=== PATIENT | female | born 1975 | race Caucasian/White ===

== ENCOUNTER 2019-04-18 00:41 | Observation (INO) ==
[2019-04-18] MEDS ORDERED: LABETALOL HCL IV 5 MG/ML 20ML IV STA ×2 (01:01→01:47)
[2019-04-18 01:10] LABS: Hematocrit (blood only) 41.7 % (37-47); Mean Corpuscular Hemoglobin 30.8 pg (25-34); Mean Corpuscular Hgb Conc 33.6 g/dL (32-36); Mean Corpuscular Volume 91.9 fL (80-100); Mean Platelet Volume 10.5 fL (7.4-10.4); Platelet Count 275 K/uL (130-400); RDW Coefficient of Variation 12.4 % (11.5-14.5); RDW Standard Deviation 41.4 fL (36.4-46.3); Red Blood Count 4.54 M/uL (4.2-5.4)
[2019-04-18] MEDS ORDERED: ASPIRIN CHEW 324 MG PO STA (01:20)
[2019-04-18 01:29] LABS: Alanine Aminotransferase 54 U/L (12-78); Albumin Level 3.5 gm/dl (3.4-5.0); Aspartate Aminotransferase 30 U/L (15-37); BUN Creatinine Ratio 12.3 (10-20); Blood Urea Nitrogen 14 mg/dl (7-18); Carbon Dioxide 28 mmol/L (21-32); Chloride 105 mmol/L (98-107); Creatinine Clr Calc Pharmacy 63.2 ml/min; Est GFR (African American) 68.2; Est GFR (Non-African American) 58.8; Glucose 156 mg/dl (70-99); Lipase 205 U/L (73-393); Potassium 3.5 mmol/L (3.5-5.1); Sodium 138 mmol/L (136-145)
[2019-04-18 01:32] LABS: Eosinophils % (manual) 0.9 %; Monocytes % (manual) 2.6 %; Myelocytes % (manual) 0.9 %; Neutrophils % (manual) 41.7 %; RBC Morphology Unremarkable; Reactive Lymphocytes % (manual) 20.9 %
[2019-04-18 01:40] LABS: Albumin Globulin Ratio 0.7 (0.9-2); Alkaline Phosphatase 94 U/L (45-117); Bilirubin,Total 0.2 mg/dl (0.2-1); Globulin 5.2 gm/dl (2.5-4.0); Total Protein 8.7 gm/dl (6.4-8.2); Troponin I < 0.015 ng/ml (0-0.045)
[2019-04-18 01:53] LABS: T4 Free Thyroxine 1.11 ng/dl (0.8-1.6)
--- NOTE | 2019-04-18 03:03 | Emergency Department Note ---
Entered by Curtis Escobedo acting as a scribe for History of Present Illness General Chief complaint: Chest Pain Stated complaint: ELEVATED BP,PULSE,CHEST PRESSURE Time Seen by Provider: 04/18/19 00:48 Source: patient History of Present Illness Onset (ago): day(s) (this morning) Location: chest Pain Consistency: + constant Maximum Pain Intensity: 3 Quality: + other (chest pressure) Associated symptoms: + other (Positive for high blood pressure and dizziness. Negative for SOB and recent weight loss.) The patient is a 44 year old female who presents to the emergency department with complaints of constant chest pressure beginning this morning. The patient states that her blood pressure has been increasing for the last three weeks. She notes that she then woke up this morning with a high blood pressure and chest pressure. She reports that she had an episode of dizziness and had to lay down. The patient states that her chest pain is not as bad after laying down. She notes that she has been hot this week which is unusual. She denies any SOB and recent weight loss. The patient reports that she has a history of Hashimotos disease, and she states that she takes control. Home Medications Home Medications Medication Instructions Recorded Confirmed Type Control Pills 1 tab PO DAILY 04/18/19 04/18/19 History levothyroxine 112 mcg PO DAILY 04/18/19 04/18/19 History Allergies Allergy/AdvReac Type Severity Reaction Status Date / Time cucumber Allergy Unknown Verified 04/25/05 22:01 Past Med/Surg History Family History (Updated 04/18/19 @ 01:30 by Curtis Escobedo) Other No significant family history Social History Preferred Language: Sudanese Communication Ability: Effective Junior Qa Analyst Required: No Beliefs That Will Affect Care: None Current Living Situation: Spouse Feels Safe at Home: Yes Smoking Status: Never smoker Hx Alcohol Use: No Hx Substance Use: No Review of Systems See HPI for pertinent positives & negatives. and A total of 10 systems reviewed and were otherwise negative Physical Exam Vital Signs Vital Signs - 24 hr 04/18/19 00:44 04/18/19 00:52 04/18/19 01:05 Temperature 36.7 C Temperature Source Oral Pulse Rate 136 H Pulse Rate [Apical] Pulse Rhythm Regular Pulse Strength Normal Respiratory Rate 22 Respiratory Depth Normal Respiratory Pattern Regular Blood Pressure 203/131 H Blood Pressure [Left Arm] Blood Pressure Mean 155 Blood Pressure Mean [Left Arm] Blood Pressure Position Sitting Pulse Oximetry 99 98 98 Oxygen Delivery Method Room Air Room Air Room Air Sepsis Recent Fever Within 48 Hours No Sepsis Action Taken by Nursing No Action Required 04/18/19 01:06 04/18/19 01:17 04/18/19 01:32 Temperature Temperature Source Pulse Rate Pulse Rate [Apical] 104 H 91 H Pulse Rhythm Pulse Strength Respiratory Rate 16 18 Respiratory Depth Respiratory Pattern Blood Pressure Blood Pressure [Left Arm] 153/108 H 162/104 H Blood Pressure Mean Blood Pressure Mean [Left Arm] 123 123 Blood Pressure Position Pulse Oximetry 98 97 95 Oxygen Delivery Method Room Air Room Air Room Air Sepsis Recent Fever Within 48 Hours Sepsis Action Taken by Nursing 04/18/19 01:49 04/18/19 02:01 04/18/19 03:39 Temperature Temperature Source Pulse Rate Pulse Rate [Apical] 85 83 85 Pulse Rhythm Pulse Strength Respiratory Rate 18 18 18 Respiratory Depth Respiratory Pattern Blood Pressure Blood Pressure [Left Arm] 146/105 H 144/95 H 165/96 H Blood Pressure Mean Blood Pressure Mean [Left Arm] 118 111 119 Blood Pressure Position Pulse Oximetry 96 94 96 Oxygen Delivery Method Room Air Room Air Room Air Sepsis Recent Fever Within 48 Hours Sepsis Action Taken by Nursing Vital signs reviewed. General: Well-appearing female, in no significant distress, anxious. HEENT: No conjunctival injection, moist mucous membranes. Flushed face. Cardiovascular: Regular rhythm and tachycardic, no extra sounds. Pulmonary: Clear to auscultation bilaterally, normal work of breathing. Abdomen: Soft, nontender, nondistended, positive bowel sounds. Musculoskeletal: Atraumatic, no peripheral edema. Neurologic: Patient awake alert and oriented x 3. Skin: Warm, dry, no rash. Course Course 0101: The patient was evaluated in room A3. A complete history and physical exam was performed. 0259: Upon reevaluation, the patient is stable. I discussed the findings and the treatment plan with the patient. She expresses agreement and understanding. [facility] The patient will be evaluated for further management. Consultations Consultation #1: I reviewed the patient's case with Dr. Ty - Hospitalist [facility]. He will evaluate the patient for further management. Time: 02:59 Administered Medications Discontinued Medications Aspirin (Aspirin) 324 mg PO NOW STA Stop: 04/18/19 01:21 Last Admin: 04/18/19 01:23 Dose: 324 mg Documented by: [id number] Labetalol HCl (Normodyne) 10 mg IV NOW STA Stop: 04/18/19 01:02 Last Admin: 04/18/19 01:18 Dose: 10 mg Documented by: [id number] Cosigned by: [id number] Labetalol HCl (Normodyne) 10 mg IV NOW STA Stop: 04/18/19 01:48 Last Admin: 04/18/19 01:51 Dose: 10 mg Documented by: [id number] Cosigned by: [id number] Medical Decision Making Differential Diagnosis Differential diagnosis: Etiologies such as hypertensive urgency, PE, pheochromocytoma, thyroid storm, shingles, musculoskeletal pain, pericarditis, myocarditis, cardiac ischemia, pneumonia, pneumothorax, pleural effusion, hemothorax, pleurisy, aortic pathology, gastritis, peptic ulcer disease, as well as others were considered. Medical Records Attestation: I reviewed the patient's medical records. Home Medications Current Medication List: was personally reviewed by me Laboratory Data Attestation: I reviewed the patient's lab results. Result diagrams: 04/18/19 01:00 04/18/19 01:00 Lab Results 04/18/19 04/18/19 Range/Units 01:00 01:00 WBC 11.50 H (4.8-10.8) K/uL RBC 4.54 (4.2-5.4) M/uL Hgb 14.0 (12.0-16.0) g/dL Hct 41.7 (37-47) % MCV 91.9 (80-100) fL MCH 30.8 (25-34) pg MCHC 33.6 (32-36) g/dL RDW Std Deviation 41.4 (36.4-46.3) fL RDW Coeff of Ines 12.4 (11.5-14.5) % Plt Count 275 (130-400) K/uL MPV 10.5 H (7.4-10.4) fL Neutrophils % (Manual) 41.7 % Lymphocytes % (Manual) 33.0 % Reactive Lymphs % (Man) 20.9 % Monocytes % (Manual) 2.6 % Eosinophils % (Manual) 0.9 % Myelocytes % (Man) 0.9 % Neutrophils # (Manual) 4.80 (1.4-6.5) K/uL Total Absolute Neuts 4.80 (1.4-6.5) K/uL Lymphocytes # (Manual) 3.80 H (1.2-3.4) K/uL Reactive Lymphs # 2.40 K/uL Total Abs Lymphocytes 6.20 H (1.2-3.4) K/uL Monocytes # (Manual) 0.30 (0.11-0.59) K/uL Eosinophils # (Manual) 0.10 (0-0.5) K/uL Myelocytes # (Manual) 0.10 H (0-0) K/uL RBC Morphology Unremarkable Sodium 138 (136-145) mmol/L Potassium 3.5 (3.5-5.1) mmol/L Chloride 105 (98-107) mmol/L Carbon Dioxide 28 (21-32) mmol/L Anion Gap 5.0 (3-11) BUN 14 (7-18) mg/dl Creatinine 1.14 (0.6-1.2) mg/dl Est Cr Clr Drug Dosing 63.2 ml/min Est GFR ( Amer) 68.2 Est GFR (Non-Af Amer) 58.8 BUN/Creatinine Ratio 12.3 (10-20) Glucose 156 H (70-99) mg/dl Calcium 9.0 (8.5-10.1) mg/dl Total Bilirubin 0.2 (0.2-1) mg/dl AST 30 (15-37) U/L ALT 54 (12-78) U/L Alkaline Phosphatase 94 (45-117) U/L Troponin I < 0.015 (0-0.045) ng/ml Total Protein 8.7 H (6.4-8.2) gm/dl Albumin 3.5 (3.4-5.0) gm/dl Globulin 5.2 H (2.5-4.0) gm/dl Albumin/Globulin Ratio 0.7 L (0.9-2) Lipase 205 (73-393) U/L TSH 10.500 H (0.300-4.500) uIu/ml Free T4 1.11 (0.8-1.6) ng/dl Imaging Data Attestation: I personally reviewed and interpreted this imaging study as follows: My Impression: CHEST X-RAY: No pulmonary consolidation. No failure. ECG Data Attestation: I personally reviewed and interpreted this ECG as follows: Indication: + chest pain Rate (beats per minute): 118 Rhythm: + sinus tachycardia ECG ST segments: no ST depression and no ST elevation ECG Findings: no PACs and no PVCs Additional Comments: QTC slightly prolonged at 462. Blood Pressure Blood Pressure Findings: Elevated blood pressure Blood Pressure Disposition: elevated BP felt to be situational MDM Narrative This patient was evaluated and appeared to be in no significant distress. IV access was obtained and laboratory work was drawn. Patient is noted to be hypertensive and tachycardic. Patient was given 324 mg of aspirin to chew. She was given 10 mg of IV labetalol with modest improvement. Laboratory work reveals an elevated TSH at 10.5 with a normal free T4 at 1.11. Troponin is normal. Patient's chest x-ray reveals no evidence of acute abnormality to my review. EKG confirms sinus tachycardia without evidence of acute ischemic process. Patient did require second dose of IV labetalol 10 mg. At this time she has no shortness of breath or pain with deep inspiration. She has maintaining her oxygenation. Although the patient is on control pills, I do think PE is less likely. Excessive thyroid hormone was considered initially however with the normal free T4, this is much less likely. Given the chest pain, tachycardia, the case was discussed with the [facility] to evaluate the patient for further management. Patient is aware of the plan and agrees. Impression & Plan Hypertensive urgency, Substernal chest pain Discharge Plan Visit Data *Final* Discharge Date/Time: 04/18/19 04:16 Chief Complaint: Chest Pain Stated Complaint: ELEVATED BP,PULSE,CHEST PRESSURE ED Provider: Rosey Pinzon Discharge Problem: Hypertensive urgency, Substernal chest pain Patient Disposition: Admitted As Inpatient Discharge Instructions Interventions: ED Discharge Assessment Last Done: 04/18/19 04:16 The scribe's documentation has been prepared under my direction and personally reviewed by me in its entirety. I confirm that the note above accurately reflects all work, treatment, procedures, and medical decision making performed by me.
--- NOTE | 2019-04-18 04:37 | History and Physical Report ---
DATE OF ADMISSION: 04/18/2019 CHIEF COMPLAINT: Chest pain and palpitations. HISTORY OF PRESENT ILLNESS: This is a 44-year-old female with past medical history significant for hypothyroidism, history of Juarez thyroiditis, who presents with chest pain. The patient says she woke up from the sleep with chest pain and palpitations, mild in severity, 2/3 in severity, pressure like feeling. Not associated with nausea or vomiting. No sweating, no headache. She was feeling dizzy today and also some blurred vision today because of these episodes. The patient was saying that since last three weeks her blood pressure was rising slowly and the blood pressure here when she came into the ER was 203/131. With the labetalol, her blood pressure has come down. She says she still has some discomfort in the chest. She is on control pills, but denies any smoking. She is on control pills for a long time, but on current control pills are for the last 2 years. Whenever she stops the control pills, she gets migraines. Denies any shortness of breath. No nausea, no vomiting, no abdominal pain. Normal bowel and bladder movements. No black stools or blood in the stools. No hematuria or burning micturition. No fever, no chills, no cough, no difficulty swallowing. No headache, no earache, no runny nose, no sore throat. Currently resting comfortably and hemodynamically stable. ALLERGIES: CUCUMBER. PAST MEDICAL HISTORY: As mentioned above. PAST SURGICAL HISTORY: Dental surgery, appendectomy. MEDICATIONS: The patient is on levothyroxine 112 mcg p.o. daily, MIRCETTE 1 tablet daily, vitamin D 2000 units p.o. daily. FAMILY HISTORY: Significant for father had hypercholesterolemia, heart disorder; mother had motor vehicle accidents; brother had kidney stones. SOCIAL HISTORY: . No smoking, no alcohol, no drug use. REVIEW OF SYSTEMS: As per HPI. Rest of the review of systems negative. PHYSICAL EXAMINATION: GENERAL: The patient is of moderate build, not in acute distress. VITAL SIGNS: Temperature of 36.7, pulse 85, respiratory rate 18, blood pressure when she came in was 203/131, currently 165/96, oxygen 96% room air. HEENT: No pallor, no icterus. Pupils equal, round, and reactive to light. NECK: No JVD, no neck masses, no carotid bruits. CARDIOVASCULAR: S1, S2 heard, regular rate and rhythm, no murmur, no gallop. RESPIRATORY SYSTEM: Normal AP diameter. No accessory muscle use. No wheezing, no crackles. ABDOMEN: Soft, bowel sounds present, nontender. No distention. CENTRAL NERVOUS SYSTEM: Cranial nerves II-XII grossly intact. Nonfocal. EXTREMITIES: No edema, no erythema. LABORATORY DATA: WBC 11.5, hemoglobin 14, hematocrit 41.7, platelets 275. Sodium 135, potassium 3.5, chloride 105, bicarbonate 28, BUN 14, creatinine 1.1, serum glucose 156, calcium 9, total bilirubin 0.2, AST 30, ALT 54, alkaline phosphatase 94. Troponin I less than 0.015. Lipase 205. TSH 10.5, free T4 of 1.11. IMAGING DATA: Chest x-ray: No acute findings seen. EKG: Sinus tachycardia with a rate of 118. Possible left atrial enlargement. No previous EKG available. ASSESSMENT AND PLAN: This is a 44-year-old female who presents with chest pain and found to have hypertensive urgency. 1. Chest pain. Troponin negative, EKG unremarkable. Risk factor is age. We will observe in tele floor. We will do serial cardiac enzymes, echocardiogram. Keep n.p.o. for now and consult cardiology in the a.m. The patient is on control pills. She is a nonsmoker. We will check a D-dimer and if D-dimer is elevated, we will do a CT angiogram of the chest to rule out pulmonary embolism. The patient is otherwise hemodynamically stable. 2. Hypertensive urgency, could be the possible cause of her chest pain and palpitations. We will place on IV labetalol p.r.n. Follow the echocardiogram. Follow the blood pressure in the hospital. Consult cardiology for further recommendations. Further workup as per cardiology recommendations. 3. Hypothyroidism. Continue her home dose Synthroid. TSH is slightly high, but free T4 normal. Follow up with repeat labs with PCP. 4. Deep venous thrombosis prophylaxis, sequential compression devices. DISPOSITION: Observation in tele floor. Level 1 full code. MTDD
[2019-04-18] MEDS ORDERED: LABETALOL HCL IV 5 MG/ML 20ML IV PRN (04:42)
[2019-04-18] MEDS ORDERED: NITROGLYCERIN SL 0.4 MG/TAB TAB SL PRN (04:42)
[2019-04-18] MEDS ORDERED: ONDANSETRON INJ 2 MG/ML 2 ML VIAL IV PRN (04:42)
[2019-04-18] MEDS ORDERED: ACETAMINOPHEN 325 MG TAB PO PRN (04:42)
[2019-04-18] MEDS: LEVOTHYROXINE SODIUM 112 MCG TABLET PO SCH (05:40)
[2019-04-18 06:37] LABS: D Dimer 360 ug/L FEU (0-500)
[2019-04-18] MEDS: BCP'S~ORDER AWAITING ACTION SCH ×2 (07:16→17:31)
--- NOTE | 2019-04-18 08:26 | XRay Report ---
XR chest 1V portable CLINICAL HISTORY: Atypical chest pain COMPARISON STUDY: No previous studies for comparison. FINDINGS: The cardiac and mediastinal contours are normal. There is no evidence of focal pulmonary co nsolidation. There is no evidence of failure. No pleural effusions are visualized.[ IMPRESSION: No active disease in the chest. ACT 112: Negative or not required by law. Electronically signed by: Gaurang Cesar M.D. 04/18/2019 8:24 AM
[2019-04-18 14:36] LABS: Amphetamines+Metham, Urine Neg (Neg); Barbiturates, Urine Neg (Neg); Benzodiazepine, Urine Neg (Neg); Cocaine, Urine Neg (Neg); MDMA (Ecstacy), Urine Neg (Neg); Methadone, Urine Neg (Neg); Opiate, Urine Neg (Neg); Phencyclidine, Urine Neg (Neg)
--- NOTE | 2019-04-18 17:03 | Hospitalist Progress Note ---
Date of Service April 18, 2019 Assessment & Plan (1) Hypertensive urgency: Admitted with very high blood pressure of 203/131 with headache and palpitation Received intravenous labetalol and the blood pressure was improved She has been complaining of headache with palpitation for the last week or so She has been a regular runner but for the last 1 week she has not been doing that Secondary causes of hypertension have to be ruled out Could be due to use of contraception and/or too much caffeine Her kidney function remains normal with lower limit of potassium Will get urine tox screen, plasma catecholamines and metanephrines and serum aldosterone level Blood pressure seems to be under control (2) Substernal chest pain: Was admitted with substernal chest pain and was noted to have hypertensive urgency Serial cardiac enzymes and EKG and echo remain unremarkable for ACS Appreciate cardiology input and recommendation (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 TSH is minimally high at more than 10 but free T4 is normal Will not change her current dose of thyroxine DVT prophylaxis SCDs Increasing ambulation Subjective 04/18/2019 The patient was seen and examined in telemetry unit She complains to have occasional headache with palpitation and was admitted with hypertensive urgency with chest pressure Has been feeling a lot better but complained to have headache in the afternoon Denies any chest pain and/or palpitation and no chest tightness Review of Systems Review of Systems: All systems reviewed and are unremarkable except as noted below Cardiovascular: no chest pain, no dyspnea on exertion and no palpitations Physical Exam Physical Exam: Lying in bed comfortably Constitutional: well developed, well nourished and + ill appearing; no acute distress Eyes: PERRL, conjunctivae normal, anicteric sclerae ENMT: external ear and nose normal, oropharynx normal Neck: trachea midline, no thyromegaly Respiratory: normal respiratory effort; no respiratory distress Auscultation: lungs clear to auscultation bilaterally Cardiovascular: Rate/Rhythm: regular rate and regular rhythm Heart Sounds: no murmur Gastrointestinal (Abdomen): Inspection/Auscultation: abdomen normal to inspection and normal bowel sounds Percussion/Palpation: abdomen soft Musculoskeletal: Extremities: strength 5/5 throughout and + abnormal strength Neurologic: patellar DTR's 2+ bilat, sensation intact Lymphatic: no cervical or axillary lymphadenopathy Results & Data Vital Signs (Past 12 Hours) Vital Signs Temp Pulse Pulse Resp BP Pulse Ox 04/18/19 15:05 36.5 C 88 18 135/83 96 04/18/19 11:00 37 C 94 H 16 151/94 H 96 04/18/19 07:19 79 04/18/19 06:55 36.9 C 80 20 127/84 98 Laboratory Results Short CBC 04/18/19 Range/Units 01:00 WBC 11.50 H (4.8-10.8) K/uL Hgb 14.0 (12.0-16.0) g/dL Hct 41.7 (37-47) % Plt Count 275 (130-400) K/uL BMP 04/18/19 01:00 Sodium 138 Potassium 3.5 Chloride 105 Carbon Dioxide 28 BUN 14 Creatinine 1.14 Glucose 156 H Calcium 9.0 Cardiac Enzymes 04/18/19 04/18/19 04/18/19 Range/Units 01:00 06:13 11:57 Troponin I < 0.015 < 0.015 < 0.015 (0-0.045) ng/ml Liver Function 04/18/19 Range/Units 01:00 Total Bilirubin 0.2 (0.2-1) mg/dl AST 30 (15-37) U/L ALT 54 (12-78) U/L Alkaline Phosphatase 94 (45-117) U/L Albumin 3.5 (3.4-5.0) gm/dl Medications Administered Current Inpatient Medications Acetaminophen (Tylenol) 650 mg PO Q4H PRN PRN Reason: Pain or Fever Stop: 05/18/19 04:41 Last Admin: 04/18/19 14:01 Dose: 650 mg Documented by: Aspirin (Ecotrin Ectab) 81 mg PO QAM [facility] Stop: 05/19/19 08:59 Labetalol HCl (Normodyne) 10 mg IV Q4H PRN PRN Reason: Hypertension Stop: 05/18/19 04:41 Levothyroxine Sodium (Synthroid) 112 mcg PO DAILYBB [facility] Stop: 05/18/19 06:29 Last Admin: 04/18/19 05:40 Dose: 112 mcg Documented by: Miscellaneous (Order Awaiting Action) 1 ea N/A QS [facility] Stop: 05/18/19 07:59 Last Admin: 04/18/19 07:16 Dose: Not Given Documented by: Nitroglycerin (Nitrostat) 0.4 mg SL UD PRN PRN Reason: Chest Pain Stop: 05/18/19 04:41 Ondansetron HCl (Zofran) 4 mg IV Q6H PRN PRN Reason: Nausea Stop: 05/18/19 04:41
[2019-04-18] MEDS ORDERED: PROPRANOLOL HCL 10 MG TAB PO STA (17:26)
--- NOTE | 2019-04-18 17:34 | Cardiology Consultation ---
Date of Consultation April 18, 2019 Assessment & Plan (1) Hypertensive urgency: (2) Juarez's disease: History of Present Illness Attending Physician: Alaina Rosario MD History of Present Illness Jovita Todd is a 44 year old female seen in cardiology consultation per the request of Dr Ty for the evaluation of palpitations and hypertension. She states that she was in her normal state of health until last night at 11 PM she felt her heart pounding and felt associated headache. Her symptoms persisted, she presented to the emergency room at 12:44 AM with initial blood pressure of 203/131. She received treatment with a dose of IV labetalol, and her blood pressure subsequently trended toward improvement. Reading this morning at 655 was 127/84, and 11 AM 151/94, and at 1505 135/83. She is actually feeling better today, but she was n.p.o. awaiting test today and then felt her headache come back. 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 Past Medical History: History of Juarez's thyroiditis, currently on levothyroxine supplementation Headaches Allergies Allergy/AdvReac Type Severity Reaction Status Date / Time cucumber Allergy Unknown Verified 04/25/05 22:01 Home Medications Home Medications Medication Instructions Recorded Confirmed Type Control Pills 1 tab PO DAILY 04/18/19 04/18/19 History levothyroxine 112 mcg PO DAILY 04/18/19 04/18/19 History Patient History Family History (Updated 04/18/19 @ 01:30 by Curtis Escobedo) Other No significant family history Social History Preferred Language: Romansh Communication Ability: Effective Printing 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 Required: No Beliefs That Will Affect Care: None Current Living Situation: Spouse Feels Safe at Home: Yes Smoking Status: Never smoker Hx Alcohol Use: No Hx Substance Use: No Review of Systems Review of Systems: All systems reviewed & are unremarkable except as noted in HPI & below Physical Exam Physical Exam: Temp Pulse Resp BP Pulse Ox 36.5 C 88 18 135/83 96 04/18/19 15:05 04/18/19 15:05 04/18/19 15:05 04/18/19 15:05 04/18/19 15:05 Constitutional: WD/WN, vitals as above Respiratory: normal respiratory effort, lungs clear to auscultation Cardiovascular: RRR, no murmur, no edema Gastrointestinal (Abdomen): normal bowel sounds, soft, nontender, no hepatosplenomegaly Neurologic: PERRL, EOMI, accommodation nl, no face palsy, no dysarthria Results & Data Vital Signs (Past 12 Hours) Vital Signs Temp Pulse Pulse Resp BP Pulse Ox 04/18/19 15:05 36.5 C 88 18 135/83 96 04/18/19 11:00 37 C 94 H 16 151/94 H 96 04/18/19 07:19 79 04/18/19 06:55 36.9 C 80 20 127/84 98 Laboratory Results D-dimer screen was normal at 360 Troponin levels have been normal on a serial basis x3. Diagnostic Findings EKG performed on admission on 04/18/2019 revealed sinus tachycardia 118 bpm, possible left atrial enlargement, otherwise normal EKG. Echocardiogram revealed normal left ventricular myocardial thickness, normal left ventricular systolic function, normal LVEF, 60 to 65%, there is no significant underlying valvular heart disease. Medications Administered Current Inpatient Medications Acetaminophen (Tylenol) 650 mg PO Q4H PRN PRN Reason: Pain or Fever Stop: 05/18/19 04:41 Last Admin: 04/18/19 14:01 Dose: 650 mg Documented by: Aspirin (Ecotrin Ectab) 81 mg PO QAM [facility] Stop: 05/19/19 08:59 Labetalol HCl (Normodyne) 10 mg IV Q4H PRN PRN Reason: Hypertension Stop: 05/18/19 04:41 Levothyroxine Sodium (Synthroid) 112 mcg PO DAILYBB [facility] Stop: 05/18/19 06:29 Last Admin: 04/18/19 05:40 Dose: 112 mcg Documented by: Miscellaneous (Order Awaiting Action) 1 ea N/A QS [facility] Stop: 05/18/19 07:59 Last Admin: 04/18/19 17:31 Dose: Not Given Documented by: Nitroglycerin (Nitrostat) 0.4 mg SL UD PRN PRN Reason: Chest Pain Stop: 05/18/19 04:41 Ondansetron HCl (Zofran) 4 mg IV Q6H PRN PRN Reason: Nausea Stop: 05/18/19 04:41 Propranolol HCl (Inderal) 10 mg PO NOW STA Stop: 04/18/19 17:27 Propranolol HCl (Inderal) 10 mg PO BID [facility] Stop: 05/19/19 08:59
--- NOTE | 2019-04-18 23:10 | Electrocardiogram Report ---
Test Reason : Blood Pressure : / mmHG Vent. Rate : 118 BPM Atrial Rate : 118 BPM P-R Int : 160 ms QRS Dur : 088 ms QT Int : 330 ms P-R-T Axes : 046 053 012 degrees QTc Int : 462 ms Sinus tachycardia Possible Left atrial enlargement Borderline ECG No previous ECGs available Confirmed by Matthias Davis ([id number]) on 04/18/2019 11:10:48 PM Referred By: REFERRED SELF Confirmed By:Matthias Davis
[2019-04-19] MEDS: BCP'S~ORDER AWAITING ACTION SCH ×2 (00:45→09:47)
[2019-04-19] MEDS: LEVOTHYROXINE SODIUM 112 MCG TABLET PO SCH (06:03)
[2019-04-19 06:21] LABS: Basophils # (auto) 0.02 K/uL (0-0.2); Basophils % (auto) 0.2 %; Eosinophils # (auto) 0.13 K/uL (0-0.5); Eosinophils % (auto) 1.2 %; Hematocrit (blood only) 40.7 % (37-47); Hemoglobin 13.8 g/dL (12.0-16.0); Immature Granulocytes # (auto) 0.02 K/uL (0.00-0.02); Immature Granulocytes % (auto) 0.2 %; Lymphocytes # (auto) 3.18 K/uL (1.2-3.4); Lymphocytes % (auto) 29.5 %; Mean Corpuscular Hemoglobin 31.1 pg (25-34); Mean Corpuscular Hgb Conc 33.9 g/dL (32-36); Mean Corpuscular Volume 91.7 fL (80-100); Mean Platelet Volume 10.4 fL (7.4-10.4); Monocytes # (auto) 0.87 K/uL (0.11-0.59); Monocytes % (auto) 8.1 %; Neutrophils # (auto) 6.56 K/uL (1.4-6.5); Neutrophils % (auto) 60.8 %; Platelet Count 254 K/uL (130-400); RDW Coefficient of Variation 12.5 % (11.5-14.5); RDW Standard Deviation 41.8 fL (36.4-46.3); Red Blood Count 4.44 M/uL (4.2-5.4); White Blood Count 10.78 K/uL (4.8-10.8)
[2019-04-19 07:00] LABS: BUN Creatinine Ratio 15.9 (10-20); Calcium 8.9 mg/dl (8.5-10.1); Creatinine Clr Calc Pharmacy 74.7 ml/min; Est GFR (Non-African American) 73.4; Magnesium 1.9 mg/dl (1.8-2.4); Potassium 3.8 mmol/L (3.5-5.1)
--- NOTE | 2019-04-19 08:59 | Cardiology Progress Note ---
Date of Service April 19, 2019 Assessment & Plan (1) Migraine headache: (2) Palpitations: (3) Elevated blood pressure, situational: Normal sailine 500 ml. Discharge on propranolol ER 60 mg daily at bedtime. Follow up with PCP regarding pending labs. Refer to cardiology as outpatient on PRN basis depending on progress and serum catecholamine results. Subjective Feeling better this am. Had headache and nausea overnight, started to feel better after 2:50 am. No headache now. BP improved with SBP in the 130s on several measurements. Resting sinus tachycardia of 101 bpm noted on telemetry, however, pt notes not symptoms and feels she is dehydrated. Review of Systems Review of Systems: All systems reviewed & are unremarkable except as noted in HPI & below Physical Exam Physical Exam: Temp Pulse Resp BP Pulse Ox 36.7 C 85 18 135/81 97 04/19/19 06:58 04/19/19 08:48 04/19/19 06:58 04/19/19 06:58 04/19/19 06:58 Constitutional: WD/WN, vitals as above Respiratory: normal respiratory effort, lungs clear to auscultation Cardiovascular: RRR, no murmur, no edema Gastrointestinal (Abdomen): normal bowel sounds, soft, nontender, no hepatosplenomegaly Neurologic: PERRL, EOMI, accommodation nl, no face palsy, no dysarthria Results & Data Vital Signs (Past 12 Hours) Vital Signs Temp Pulse Pulse Resp BP BP Pulse Ox 04/19/19 06:58 36.7 C 87 18 135/81 97 04/19/19 04:13 36.8 C 84 20 135/82 98 04/19/19 00:00 74 Laboratory Results Cardiac Enzymes 04/18/19 Range/Units 11:57 Troponin I < 0.015 (0-0.045) ng/ml CBC 04/19/19 Range/Units 06:01 WBC 10.78 (4.8-10.8) K/uL RBC 4.44 (4.2-5.4) M/uL Hgb 13.8 (12.0-16.0) g/dL Hct 40.7 (37-47) % Plt Count 254 (130-400) K/uL Neut # (Auto) 6.56 H (1.4-6.5) K/uL Lymph # (Auto) 3.18 (1.2-3.4) K/uL [place] # (Auto) 0.87 H (0.11-0.59) K/uL Eos # (Auto) 0.13 (0-0.5) K/uL Baso # (Auto) 0.02 (0-0.2) K/uL Comprehensive Metabolic Panel 04/19/19 Range/Units 06:01 Sodium 137 (136-145) mmol/L Potassium 3.8 (3.5-5.1) mmol/L Chloride 105 (98-107) mmol/L Carbon Dioxide 24 (21-32) mmol/L BUN 15 (7-18) mg/dl Creatinine 0.95 (0.6-1.2) mg/dl Glucose 94 (70-99) mg/dl Calcium 8.9 (8.5-10.1) mg/dl Intake and Output 04/18/19 04/19/19 04/19/19 22:59 06:59 14:59 Intake Total 100 / 160 60 / 160 Balance 100 / -40 60 / -40 Intake: Oral 100 / 160 60 / 160 Other: Weight 76.3 kg
[2019-04-19] MEDS ORDERED: SODIUM CHLORIDE 0.9% 500 ML IV SCH (09:00)
[2019-04-19] MEDS ORDERED: ASPIRIN 81 MG ECTAB PO SCH (09:00)
[2019-04-19] MEDS ORDERED: PROPRANOLOL HCL 10 MG TAB PO SCH (09:00)
--- NOTE | 2019-04-19 11:34 | Hospitalist Progress Note ---
Date of Service April 19, 2019 Assessment & Plan (1) Hypertensive urgency: Admitted with very high blood pressure of 203/131 with headache and palpitation Received intravenous labetalol and the blood pressure was improved She has been complaining of headache with palpitation for the last week or so She has been a regular runner but for the last 1 week she has not been doing that Secondary causes of hypertension have to be ruled out Could be due to use of contraception and/or too much caffeine Her kidney function remains normal with lower limit of potassium Will get urine tox screen, plasma catecholamines and metanephrines and serum aldosterone level Blood pressure seems to be under control Started on long-acting propranolol for migraine and which will control the blood pressure as well Awaiting results of plasma catecholamines level Blood pressure is under control and the patient will be sent home this afternoon (2) Substernal chest pain: Was admitted with substernal chest pain and was noted to have hypertensive urgency Serial cardiac enzymes and EKG and echo remain unremarkable for ACS Appreciate cardiology input and recommendation No more chest pain and the EKG and echo were unremarkable (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 TSH is minimally high at more than 10 but free T4 is normal Will not change her current dose of thyroxine She was expecting to see him an field service supervisor as an outpatient DVT prophylaxis SCDs Increasing ambulation Discharge home this afternoon Subjective 04/18/2019 The patient was seen and examined in telemetry unit She complains to have occasional headache with palpitation and was admitted with hypertensive urgency with chest pressure Has been feeling a lot better but complained to have headache in the afternoon Denies any chest pain and/or palpitation and no chest tightness 04/19/2019 Patient was seen and examined in telemetry unit She has history of migraine and apparently has had an attack yesterday She has been feeling a lot better since this morning and her vitals remained stable Denies any significant symptoms Review of Systems Review of Systems: All systems reviewed and are unremarkable except as noted below Physical Exam Physical Exam: Lying in bed comfortably Constitutional: well developed and well nourished; no acute distress and not ill appearing Eyes: PERRL, conjunctivae normal, anicteric sclerae ENMT: external ear and nose normal, oropharynx normal Neck: trachea midline, no thyromegaly Respiratory: normal respiratory effort; no respiratory distress Auscultation: lungs clear to auscultation bilaterally Cardiovascular: Rate/Rhythm: regular rate and regular rhythm Heart Sounds: no murmur Gastrointestinal (Abdomen): Inspection/Auscultation: abdomen normal to inspection and normal bowel sounds Percussion/Palpation: abdomen soft Musculoskeletal: Extremities: strength 5/5 throughout and + abnormal strength Neurologic: patellar DTR's 2+ bilat, sensation intact Lymphatic: no cervical or axillary lymphadenopathy Results & Data Vital Signs (Past 12 Hours) Vital Signs Temp Pulse Pulse Resp BP BP Pulse Ox 04/19/19 08:48 85 04/19/19 06:58 36.7 C 87 18 135/81 97 04/19/19 04:13 36.8 C 84 20 135/82 98 04/19/19 00:00 74 Laboratory Results Short CBC 04/19/19 Range/Units 06:01 WBC 10.78 (4.8-10.8) K/uL Hgb 13.8 (12.0-16.0) g/dL Hct 40.7 (37-47) % Plt Count 254 (130-400) K/uL BMP 04/19/19 06:01 Sodium 137 Potassium 3.8 Chloride 105 Carbon Dioxide 24 BUN 15 Creatinine 0.95 Glucose 94 Calcium 8.9 Cardiac Enzymes 04/18/19 Range/Units 11:57 Troponin I < 0.015 (0-0.045) ng/ml Medications Administered Current Inpatient Medications Acetaminophen (Tylenol) 650 mg PO Q4H PRN PRN Reason: Pain or Fever Stop: 05/18/19 04:41 Last Admin: 04/18/19 14:01 Dose: 650 mg Documented by: Sodium Chloride (Nss) 500 mls @ 150 mls/hr IV .Q3H20M [facility] Stop: 04/19/19 12:19 Last Admin: 04/19/19 09:42 Dose: 150 mls/hr Documented by: Labetalol HCl (Normodyne) 10 mg IV Q4H PRN PRN Reason: Hypertension Stop: 05/18/19 04:41 Levothyroxine Sodium (Synthroid) 112 mcg PO DAILYBB [facility] Stop: 05/18/19 06:29 Last Admin: 04/19/19 06:03 Dose: Not Given Documented by: Miscellaneous (Order Awaiting Action) 1 ea N/A QS [facility] Stop: 05/18/19 07:59 Last Admin: 04/19/19 09:47 Dose: Not Given Documented by: Ondansetron HCl (Zofran) 4 mg IV Q6H PRN PRN Reason: Nausea Stop: 05/18/19 04:41 Propranolol HCl (Inderal) 10 mg PO BID MELIZA Stop: 05/19/19 08:59 Last Admin: 04/19/19 08:42 Dose: 10 mg Documented by:
--- NOTE | 2019-04-20 08:03 | Discharge Summary ---
Date of Service April 20, 2019 Admission HPI Per Admitting Provider DICTATED BY: Rickey Ty MD DATE OF ADMISSION: 04/18/2019 CHIEF COMPLAINT: Chest pain and palpitations. HISTORY OF PRESENT ILLNESS: This is a 44-year-old female with past medical history significant for hypothyroidism, history of Juarez thyroiditis, who presents with chest pain. The patient says she woke up from the sleep with chest pain and palpitations, mild in severity, 2/3 in severity, pressure like feeling. Not associated with nausea or vomiting. No sweating, no headache. She was feeling dizzy today and also some blurred vision today because of these episodes. The patient was saying that since last three weeks her blood pressure was rising slowly and the blood pressure here when she came into the ER was 203/131. With the labetalol, her blood pressure has come down. She says she still has some discomfort in the chest. She is on control pills, but denies any smoking. She is on control pills for a long time, but on current control pills are for the last 2 years. Whenever she stops the control pills, she gets migraines. Denies any shortness of breath. No nausea, no vomiting, no abdominal pain. Normal bowel and bladder movements. No black stools or blood in the stools. No hematuria or burning micturition. No fever, no chills, no cough, no difficulty swallowing. No headache, no earache, no runny nose, no sore throat. Currently resting comfortably and hemodynamically stable. Admission Exam Per Admitting Provider GENERAL: The patient is of moderate build, not in acute distress. VITAL SIGNS: Temperature of 36.7, pulse 85, respiratory rate 18, blood pressure when she came in was 203/131, currently 165/96, oxygen 96% room air. HEENT: No pallor, no icterus. Pupils equal, round, and reactive to light. NECK: No JVD, no neck masses, no carotid bruits. CARDIOVASCULAR: S1, S2 heard, regular rate and rhythm, no murmur, no gallop. RESPIRATORY SYSTEM: Normal AP diameter. No accessory muscle use. No wheezing, no crackles. ABDOMEN: Soft, bowel sounds present, nontender. No distention. CENTRAL NERVOUS SYSTEM: Cranial nerves II-XII grossly intact. Nonfocal. EXTREMITIES: No edema, no erythema. Principal Diagnosis Hypertensive urgency likely secondary to migraine, chest pain-no ACS, Juarez's disease Discharge Exam Constitutional well developed and well nourished; no acute distress and not ill appearing Eyes PERRL, conjunctivae normal, anicteric sclerae ENMT external ear and nose normal, oropharynx normal Neck trachea midline, no thyromegaly Respiratory normal respiratory effort; no respiratory distress Auscultation: lungs clear to auscultation bilaterally Cardiovascular Rate/Rhythm: regular rate and regular rhythm Heart Sounds: no murmur Gastrointestinal (Abdomen) Inspection/Auscultation: abdomen normal to inspection and normal bowel sounds Percussion/Palpation: abdomen soft Musculoskeletal Extremities: strength 5/5 throughout and + abnormal strength Neurologic patellar DTR's 2+ bilat, sensation intact Lymphatic no cervical or axillary lymphadenopathy Discharge Data Allergies Allergy/AdvReac Type Severity Reaction Status Date / Time cucumber Allergy Unknown Verified 04/25/05 22:01 Consultations 04/18/19 03:22 ED Decision to Admit Stat 04/18/19 08:00 Consult Cardiology Routine Hospital Course (1) Hypertensive urgency: Admitted with very high blood pressure of 203/131 with headache and palpitation Received intravenous labetalol and the blood pressure was improved She has been complaining of headache with palpitation for the last week or so She has been a regular runner but for the last 1 week she has not been doing that Secondary causes of hypertension have to be ruled out Could be due to use of contraception and/or too much caffeine Her kidney function remains normal with lower limit of potassium Will get urine tox screen, plasma catecholamines and metanephrines and serum aldosterone level Blood pressure seems to be under control Started on long-acting propranolol for migraine and which will control the blood pressure as well Awaiting results of plasma catecholamines level Blood pressure is under control and the patient will be sent home this afternoon (2) Substernal chest pain: Was admitted with substernal chest pain and was noted to have hypertensive urgency Serial cardiac enzymes and EKG and echo remain unremarkable for ACS Appreciate cardiology input and recommendation No more chest pain and the EKG and echo were unremarkable (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 TSH is minimally high at more than 10 but free T4 is normal Will not change her current dose of thyroxine She was expecting to see him an administrative specialist as an outpatient DVT prophylaxis SCDs Increasing ambulation Discharge home this afternoon Total Time Total Time Spent Total Time Spent (In Minutes): 35 minutes Total Time Includes: Examination of the Patient, Discharge Planning, Medication Reconciliation and Communication With Other Providers Discharge Plan Discharge Items Patient Disposition: Home - Self-Care Reason For Visit: CHEST PAIN, PALPITATIONS Discharge Diagnosis: Hypertensive urgency likely secondary to migraine, chest pain-no ACS, Juarez's disease Condition on Discharge: Good Activity: Resume your previous activity Non-emergency contact: Primary Care Provider Call non-emergency contact if: you have any medication questions Follow-up/Referrals: Sarita Jasnen PA-C [Primary Care Provider] - 04/24/19 1:05 pm (Your appointment is with Dr. Arroyo. Please ask for a referral to see administrative specialist during your visit with your PCP.) Diet: Regular and Low Sodium (2gm) Addtl Attending Provider Instructions: The pending test results will be sent to your PCP Pending Studies at Discharge: Yes Studies:: Plasma catecholamines and aldosterone Stand-Alone Forms: Call Back Authorization, [facility], Smoking Cessation Medications and DC Order Prescriptions: New propranolol 60 mg capsule,extended release 24 hr 60 mg PO HS Qty: 30 RF: 0 Continued levothyroxine 112 mcg Tablet 112 mcg PO DAILY RF: 0 Control Pills 1 tab PO DAILY RF: 0 Discharge Orders: Discharge Order (Routine); Ordered 04/19/19 Ordered By: Alaina Esquivel/Other Patient Handouts: Propranolol Hydrochloride Oral capsule extended- release Admission Data Admit Date/Time: 04/18/19 03:46 Attending Provider: Alaina Rosario Admit Provider: Rickey Ty Primary Care Provider: Sarita Jansen Other Providers: Rickey Ty ; James Christopher Other Interventions: Discharge Summary Assessment (RN) Last Done: 04/19/19 13:55 DC Date/Time DO NOT enter until pt leaves facility: 04/19/19 14:17
[2019-04-23 18:39] LABS: Catech Norepinephrine 350 pg/mL; Catech Total, Plasma 433 pg/mL; Metanephrine, Plasma 47 pg/mL (<=57); Normetanephrine Plasma 52 pg/mL (<=148); Total Metanephrine Plasma 99 pg/mL (<=205)
== END 2019-04-19 14:17 | disposition home or self-care (01) ==
LOC: 2S 00:41 → ED 00:41 → 2S 04:16